=== PATIENT | female | born 1965 | race Caucasian/White ===

== ENCOUNTER 2016-10-23 18:50 | Emergency (ER) | payer MEDICAID ==
[~2016-10-23] VITALS: Ht 162.6 cm; Wt 60.0 kg
[2016-10-23] MEDS ORDERED: METHOCARBAMOL 500MG TABLET PO NR (21:15)
[2016-10-23] MEDS ORDERED: ACETAMINOPHEN WITH CODEINE 300/30MG TABLET PO NR (21:15)
[2016-10-23 22:39] VITALS: BP 124/81
== END 2016-10-23 23:25 | disposition home or self-care (01) ==
LOC: ER 18:57
DX: S09.90XA Unspecified injury of head, initial encounter (principal); S33.5XXA Sprain of ligaments of lumbar spine, initial encounter; S13.9XXA Sprain of joints and ligaments of unspecified parts of neck, initial encounter; M79.621 Pain in right upper arm; S70.01XA Contusion of right hip, initial encounter; V18.0XXA Pedal cycle driver injured in noncollision transport accident in nontraffic accident, initial encounter; Y93.55 Activity, bike riding; Y92.480 Sidewalk as the place of occurrence of the external cause; I10 Essential (primary) hypertension; G89.4 Chronic pain syndrome
CPT/HCPCS: 70450; 72100; 72125; 73060; 73502; 99284